=== PATIENT | male | born 2000 | race Caucasian/White ===

== ENCOUNTER 2019-10-22 22:38 | Emergency (ER) | payer SELFPAY ==
[2019-10-22 22:44] VITALS: BP 97/75
[2019-10-22] MEDS ORDERED: PREDNISONE 20 MG TABLET PO ONE (23:05)
[2019-10-22] MEDS ORDERED: FAMOTIDINE 20 MG TABLET PO ONE (23:05)
--- NOTE | 2019-10-22 23:06 | ER Document Report ---
HPI - HPI Time Seen by Provider: 10/22/19 23:05 Pain Level: Denies Notes: CHIEF COMPLAINT: HPI: ROS: See HPI - all other systems were reviewed and are otherwise negative Constitutional: no fever Eyes: no drainage, no blurred vision ENT: no runny nose, no sore throat Cardiovascular: no chest pain Resp: no SOB, no cough GI: no vomiting, no diarrhea, no abdominal pain : no dysuria Integumentary: no rash Allergy: no hives Musculoskeletal: no extremity pain or swelling Neurological: no numbness/tingling, no weakness MEDICATIONS: I agree with the patient medications as charted by the RN. ALLERGIES: I agree with the allergies as charted by the RN. PAST MEDICAL HISTORY/PAST SURGICAL HISTORY: Reviewed and agree as charted by RN. SOCIAL HISTORY: Reviewed and agree as charted by RN. FAMILY HISTORY: No significant familial comorbid conditions directly related to patient complaint EXAM: Reviewed vital signs as charted by RN. CONSTITUTIONAL: Alert and oriented and responds appropriately to questions. Well-appearing; well-nourished HEAD: Normocephalic; atraumatic EYES: PERRL; Conjunctivae clear, sclerae non-icteric ENT: normal nose; no rhinorrhea; moist mucous membranes; pharynx without lesions noted, no uvula edema or deviation, no tonsillar hypertrophy, phonation normal NECK: Supple without meningismus; non-tender; no cervical lymphadenopathy, no masses CARD: RRR; no murmurs, no clicks, no rubs, no gallops; symmetric distal pulses RESP: Normal chest excursion without splinting or tachypnea; breath sounds clear and equal bilaterally; no wheezes, no rhonchi, no rales, pulse oximetry ABD/GI: Normal bowel sounds; non-distended; soft, non-tender, no rebound, no guarding; no palpable organomegaly or masses. BACK: The back appears normal and is non-tender to palpation, there is no CVA tenderness EXT: Normal ROM in all joints; non-tender to palpation; no cyanosis, no effusions, no edema SKIN: Normal color for age and race; warm; dry; good turgor; no acute lesions noted NEURO: Moves all extremities equally; Motor and sensory function intact PSYCH: The patient's mood and manner are appropriate. Grooming and personal hygiene are appropriate. MDM: Past Medical History - Social History Smoking Status: Never Smoker Family History: Reviewed & Not Pertinent Patient has suicidal ideation: No Patient has homicidal ideation: No Course - Vital Signs Vital signs: Temp Pulse Resp BP Pulse Ox 97.7 F 94 19 97/75 L 97 10/22/19 22:42 10/22/19 22:42 10/22/19 22:42 10/22/19 22:42 10/22/19 22:42 Discharge - Discharge Clinical Impression: Allergic reaction Qualifiers: Encounter type: initial encounter Qualified Code(s): T78.40XA - Allergy, unspecified, initial encounter Condition: Stable Disposition: HOME, SELF-CARE Instructions: Acute Allergic Reaction ([facility]) Additional Instructions: 1. take the medications as prescribed 2. take Benadryl 25-50 mg three times daily for 3-4 days 3. follow up recheck with PCP for further evaluation and treatment, call for appt. 4. return for any shortness of breath or worsening rash or condition Prescriptions: Prednisone [Deltasone 20 mg Tablet] 2 tab PO DAILY 5 Days #10 tablet Famotidine [Pepcid 20 mg Tablet] 20 mg PO BID #12 tablet Referrals: JENN DUBOIS MD [ACTIVE STAFF] - Follow up as needed
== END 2019-10-22 23:23 | disposition home or self-care (01) ==
LOC: ER 22:38
DX: T78.40XA Allergy, unspecified, initial encounter (principal); X58.XXXA Exposure to other specified factors, initial encounter
CPT/HCPCS: 99283; J7512